=== PATIENT | female | born 1985 | race Asian ===

== ENCOUNTER 2020-11-25 07:38 | Inpatient (IN) ==
[2020-11-25] MEDS ORDERED: OXYTOCIN 30 UNITS/500 ML BAG IV PRN ×2 (08:03→08:04)
[2020-11-25 08:21] LABS: Hematocrit (blood only) 39.5 % (37-47); Hemoglobin 13.3 g/dL (12.0-16.0); Mean Corpuscular Hemoglobin 32.2 pg (25-34); Mean Corpuscular Hgb Conc 33.7 g/dL (32-36); Mean Corpuscular Volume 95.6 fL (80-100); Mean Platelet Volume 10.6 fL (7.4-10.4); Platelet Count 162 K/uL (130-400); RDW Coefficient of Variation 14.5 % (11.5-14.5); RDW Standard Deviation 49.9 fL (36.4-46.3); Red Blood Count 4.13 M/uL (4.2-5.4); White Blood Count 9.13 K/uL (4.8-10.8)
--- NOTE | 2020-11-25 08:21 | History & Physical Report ---
Date of Service November 25, 2020 Assessment & Plan (1) Encounter for induction of labor: 35 y/o w/ hx of IVF and GDM who presents for induction of labor at 40w2d and had mariscal bulb placed 11/24/20. AB pos. Rubella immune. GBS neg. Stable. - removed mariscal bulb 0849am - FHT and toco monitoring. Category 1 tracing. - will likely AROM later - LR 125mL/hr - induction w/ Pitocin - will likely use epidural - routine care (2) Gestational diabetes: - not on medications - BSG q2h (3) Hypothyroid in , antepartum: - subclinical hypothyroidism - continue home levothyroxine 75 mcg daily (4) resulting from in vitro fertilization, antepartum: - IVF ICSI Sabino Clark, transfer 03/07/20 - hx 1 prior IVF spontaneous - lupux anticoag pos 05/21/19, but neg on 09/27/19. Per hematology, does not meet criteria for antiphospholipid syndrome - had been on sq Lovenox 40 daily until 18 wks. - no hx blood clot and family hx neg - daily baby ASA this (5) Encounter for screening laboratory testing for COVID-19 virus: - 11/25/20 negative Admission and Anticipated Discharge Date Admission Date: November 25, 2020 History of Present Illness Primary Care Provider: Mila Mendel Roy is a 35 y/o female at 40w2d (IVF, manual) who is here for induction. Her was complicated by IVF, hypothyroidism, and Lovenox use (stopped at 18wks). Mariscal bulb placed yesterday. + contractions; + movement; - fluid loss; + bloody show Had regular appointments with OB. Labs: (04/23/20) Blood type: AB positive Antibody screen: neg H.3 (today) Hct: 39.5 (today) WBC: 9.13 (today) Plt: 162 (today) Rubella: immune VDRL/RPR: nonreactive Gonorrhea: not detected Chlamydia: not detected HIV: neg HbSAg: neg GBS: neg (11/06/20) Glucose 1 hour 50 gm load 173mg/dl (H) 06/09/20 Other screens: CF/SMA done w/ Sabino Clark TSH: 1.26 uIu/ml 08/30/20 Maternal serum alpha fetoprotein 43.5ng/nL 06/09/20 Allergies Allergy/AdvReac Type Severity Reaction Status Date / Time No Known Drug Allergies Allergy Unknown Verified 11/25/20 08:08 Home Medications Medication Instructions Recorded Confirmed Type aspirin 81 mg chewable tablet 81 mg PO DAILY 04/18/20 11/25/20 History prenat.vits,néstor,dst-[id number] 1 tab PO DAILY 04/18/20 11/25/20 History acetone (urine) test #50 ea 09/12/20 11/24/20 Rx blood-glucose meter #1 ea 09/12/20 11/24/20 Rx lancets #102 ea 09/12/20 11/24/20 Rx levothyroxine 75 mcg capsule 75 mcg PO .COMPLEX #30 cap 10/01/20 11/25/20 Rx blood sugar diagnostic #100 ea 11/11/20 11/24/20 Rx Patient History Medical History Gestational diabetes Hypothyroid in , antepartum Varicella vaccination Surgical History S/P dilatation and curettage S/P wisdom tooth extraction Family History Mother Hypertension History of thyroidectomy Social History Smoking Status: Never smoker Hx Alcohol Use: No Hx Substance Use: No Preferred Language: Albanian Communication Ability: Effective Beliefs That Will Affect Care: None marital status: marital status details: Bharat Jhaveri (35) [phone] Current Living Situation: Spouse Current Living Situation Comment: lives with spouse, no pets current occupational status: employed 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 Denies breast pain. Denies dysuria. Denies headache or changes in vision. Denies nausea/vomiting. Denies numbness, tingling, weakness. Physical Exam Physical Exam: General: Alert, oriented. No acute distress. Cardiac: Regular rate and rhythm, no murmurs/rubs/gallops. Respiratory: Clear to auscultation bilaterally, no wheezes/rales/rhonchi. No increased work of breathing. Symmetrical chest rise. No respiratory distress. Abdomen: Gravid Pelvic: Dilation 3-4 cm; Effacement 80%; Station -2. Soft posterior. EFW 7-8. Exam per Dr. De Los Santos, import/export specialist present. 0852am. Lower Extremities: No lower extremity edema or swelling. No deep calf pain. Myranda's negative bilaterally Results & Data ([facility]) Vital Signs (Past 12 Hours) Vital Signs Pulse BP 11/25/20 07:53 73 132/79 Code Status & VTE Plan Code Status full code VTE Prophylaxis Plan VTE Prophylaxis will be ordered: Yes Monitoring External Monitor External FHT and external uterine monitors used; Category I tracing; moderate FHT variability. Baseline 130 bpm w/ mod variability. No variable or late decels. Tocodynamometer Contractions q8-10 minutes. Supervising Physician Co-Signing Physician Notes Resident Physician Supervision Note: I interviewed and examined the patient. Discussed with Dr. Mariscal and agree with findings and plan as documented in the note. Any exceptions or clarifications are listed here: [None] Documented By: Jessica Caromna MD, FACOG Resident Activity Tracking Resident Involvement: Resident Care Provided Care Provided: OB Delivery
[2020-11-25] MEDS: LACTATED RINGER'S 1,000 ML IV PRN ×3 (09:29→19:49)
[2020-11-25] MEDS ORDERED: SODIUM CHLORIDE 0.9% INJ 10 ML VIAL ONE (12:55)
[2020-11-25] MEDS ORDERED: BUPIVACAINE 0.25% 30 ML VIAL ONE (12:55)
[2020-11-25] MEDS ORDERED: ePHEDrine sulfate 50 MG/ML AMP ONE (12:55)
[2020-11-25] MEDS ORDERED: fentaNYL 2MCG/ML ROPIVACAINE 1.25MG/ML 100 ML BAG EPI ONE (12:56)
[2020-11-25] MEDS ORDERED: fentaNYL citrate 100 MCG/2 ML VIAL ONE (12:56)
[2020-11-25] MEDS ORDERED: NALOXONE HCL 1 MG in SODIUM CHLORIDE 0.9% 1000ML 1,000 ML IV PRN (14:07)
[2020-11-25] MEDS ORDERED: NALOXONE HCL 0.4 MG/1 ML VIAL/CARP IV PRN (14:07)
[2020-11-25] MEDS ORDERED: ONDANSETRON INJ 2 MG/ML 2 ML VIAL IV PRN (14:07)
[2020-11-25] MEDS ORDERED: diphenhydrAMINE 50 MG/ML VIAL IV PRN (14:07)
[2020-11-25] MEDS ORDERED: ePHEDrine sulfate 50 MG/ML AMP IV PRN (14:07)
--- NOTE | 2020-11-25 14:12 | Anesthesiology Consultation ---
Date of Service November 25, 2020 Assessment & Plan (1) Encounter for pre-operative examination: Chart Review Chart Review: Acceptable Risk for Labor Epidural Consults Requested none ASA ASA2 Proposed Anesthesia Anesthesia Type: Labor Epidural Risk / Benefits Reviewed With: PT / POA / Parent / Guardian, Accepts Plan and Informed Consent Obtained History Height/Weight Height: 5 ft 5 in Weight: 59.874 kg Allergies Allergy/AdvReac Type Severity Reaction Status Date / Time No Known Drug Allergies Allergy Unknown Verified 11/25/20 08:08 Medications Home Medications Medication Instructions Recorded Confirmed Last Taken aspirin 81 mg chewable tablet 81 mg PO DAILY 04/18/20 11/25/20 11/24/20 prenat.vits,néstor,bht-[id number]-[id number] 1 tab PO DAILY 04/18/20 11/25/20 11/24/20 acetone (urine) test #50 ea 09/12/20 11/24/20 Unknown blood-glucose meter #1 ea 09/12/20 11/24/20 Unknown lancets #102 ea 09/12/20 11/24/20 Unknown levothyroxine 75 mcg capsule 75 mcg PO .COMPLEX #30 cap 10/01/20 11/25/20 11/25/20 blood sugar diagnostic #100 ea 11/11/20 11/24/20 Unknown Active Medications Generic Name Dose Route Start Last Admin Trade Name Freq PRN Reason Stop Dose Admin Oxytocin 30 units in 500 mls @ 8 mls/hr 11/25/20 08:04 11/25/20 11:57 Pitocin IV 11/27/20 08:03 0.48 units/hr .Q24H PRN 8 mls/hr Labor Induction/Augmentation Titration Protocol 0.48 UNITS/HR Lactated Ringer's 1,000 mls @ 125 mls/hr 11/25/20 08:03 11/25/20 13:55 Lr IV 11/27/20 08:02 999 mls/hr .Q8H PRN Administration L&D Protocol Protocol Past Medical History Medical History Gestational diabetes Hypothyroid in , antepartum Varicella vaccination Exercise / Class Metabolic Activity II 4-5 Yardwork/Stairs/Walk up hill Past Family History Family History Mother Hypertension History of thyroidectomy Past Surgical History Surgical History S/P dilatation and curettage S/P wisdom tooth extraction Past Anesthesia History No Hx of Anesthesia Complications and No Family Hx of Anesthesia Complications History of PONV No Hx of PONV and No Hx of Motion Sickness Social History Smoking Status: Never smoker Hx Alcohol Use: No Hx Substance Use: No substance use type: does not use Physical Exam Vital Signs Last Vital Signs Temp 98.2 F 11/25/20 13:30 Pulse 63 11/25/20 14:07 Resp 20 11/25/20 14:00 BP 131/80 11/25/20 13:55 Pulse Ox 99 11/25/20 14:07 ENMT Mouth: no dentition abnormality Thyromental Distance: > or= 3.5 Finger Breadths Mallampati Class: II Neck normal visual inspection Respiratory normal respiratory effort Auscultation: lungs clear to auscultation bilaterally Cardiovascular Rate/Rhythm: regular rate and regular rhythm Testing Laboratory Results 11/25/20 08:08 11/25/20 11/25/20 12:48 09:28 POC Glucose 92 115 H
[2020-11-25] MEDS: fentaNYL 2MCG/ML ROPIVACAINE 1.25MG/ML 100 ML BAG EPI PRN ×2 (14:18→21:44)
[2020-11-25] MEDS ORDERED: ERYTHROMYCIN OP OINT 1 GM PKT ONE (23:00)
[2020-11-26] MEDS ORDERED: DIPHTHERIA/TETANUS/PERTUSSIS 0.5 ML SYR/VIAL IM ONE (00:13)
[2020-11-26] MEDS ORDERED: ACETAMINOPHEN 325 MG TAB PO PRN (00:13)
[2020-11-26] MEDS ORDERED: HYDROCORTISONE ACETATE 25 MG SUPP PR PRN (00:13)
[2020-11-26] MEDS ORDERED: BENZOCAINE 20% AER SPR 82.5 GM CAN EXT PRN (00:13)
[2020-11-26] MEDS ORDERED: oxyCODONE/ACETAMINOPHEN 5mg/325mg TAB PO PRN (00:13)
[2020-11-26] MEDS ORDERED: bisacodyL 10 MG SUPP PR PRN (00:13)
[2020-11-26] MEDS ORDERED: OXYTOCIN 30 UNITS/500 ML BAG IV PRN (00:13)
[2020-11-26] MEDS ORDERED: SUPERCREAM 0.870% 15 GM JAR EXT PRN (00:13)
--- NOTE | 2020-11-26 00:19 | Delivery Summary ---
Vaginal Delivery Summary Date of Service November 26, Patient presented for induction of labor because of postterm . She received a cervical balloon the night prior to induction. Pitocin augmentation of her labor was begun and membranes were ruptured when she was approximately 4 to 5 cm dilated. She received effective epidural analgesia. She progressed to complete and pushing, which she did effectively over intact perineum. There was some bleeding when the head was at +3 station which appeared to be coming from a vaginal tear posteriorly. The bleeding was controlled with direct pressure. The then delivered in the vertex presentation the rest of the delivered easily and was placed on the mother's abdomen for further attention and drying. There was poor respiratory effort initially therefore the cord was clamped and cut. The was placed on the baby bed for further stimulation. The placenta was expressed intact with a three-vessel cord. A partial third-degree laceration was repaired with 2-0 chromic and 3-0 chromic in the usual fashion. The bleeding was controlled with dilute Pitocin. Estimated blood loss was 400 cc. Mother and infant were doing well after delivery. Vaginal Delivery Summary and 3rd Degree LAC (partial ) [facility] [place] Charge Vaginal Delivery Codes: 40313 global code for the antepartum, delivery, and post- Delivery Type Details: and 3rd Degree LAC (partial )
[2020-11-26] MEDS: IBUPROFEN 600 MG TAB PO PRN ×3 (02:37→17:30)
--- NOTE | 2020-11-26 05:59 | Obstetrical Progress Note ---
Date of Service <Chidi Mariscal MD - Last Filed: 11/26/20 06:56> November 26, 2020 Assessment & Plan <Chidi Mariscal MD - Last Filed: 11/26/20 06:56> (1) state: (2) Hypothyroidism affecting : - continue home levothyroxine 75 mg 6 days/wk (3) Gestational diabetes: - no medications or glucose checks indicated while in unit - check blood glucose at 6 wk check Subjective <Chidi Mariscal MD - Last Filed: 11/26/20 06:56> Passing Gas:: Yes Diet Tolerance:: regular diet Lochia:: Moderate Feeding Type:: breast feeding (not sure if enough milk.) Current Pain Level(1-10): 0 Patient delivered just prior to midnight and has not yet ambulated or voided. She would like assistance. Review of Systems Denies fever, chills, sweats Denies shortness of breath, chest pain, palpitations. Denies breast pain. Denies headache or changes in vision. Denies nausea/vomiting Denies numbness, tingling, weakness. Physical Exam <Chdii Mariscal MD - Last Filed: 11/26/20 06:56> General: Alert, oriented. No acute distress. Cardiac: Regular rate and rhythm, no murmurs/rubs/gallops. Respiratory: Clear to auscultation bilaterally, no wheezes/rales/rhonchi. No respiratory distress. Abdomen: , soft, nontender. Uterus: Uterine fundus firm, palpable at level of umbilicus. Lower Extremities: No lower extremity edema or swelling. No deep calf pain. Myranda's negative bilaterally. Results & Data ([facility]) <Chidi Mariscal MD - Last Filed: 11/26/20 06:56> Vital Signs (Past 12 Hours) Vital Signs Temp Pulse Pulse Resp BP BP Pulse Ox 11/26/20 03:35 36.6 C 84 16 110/72 97 11/26/20 03:33 108 H 106/59 L 11/26/20 02:36 109 H 112/57 L 11/26/20 02:35 37.2 C 109 H 20 112/57 L 11/26/20 02:21 100 H 96/55 L 11/26/20 02:16 98 H 95/53 L 11/26/20 02:06 109 H 105/57 L 11/26/20 02:05 109 H 18 105/57 L 11/26/20 01:51 112 H 102/58 L 11/26/20 01:36 105 H 102/57 L 11/26/20 01:35 112 H 16 102/58 L 11/26/20 01:21 104 H 104/63 11/26/20 01:06 107 H 114/74 11/26/20 01:05 107 H 18 114/74 11/26/20 00:51 117 H 128/72 11/26/20 00:50 117 H 18 116/68 11/26/20 00:36 117 H 116/68 11/26/20 00:35 121 H 18 123/68 11/26/20 00:21 121 H 123/68 11/26/20 00:20 121 H 18 123/68 11/26/20 00:06 94 H 115/67 11/26/20 00:05 121 H 20 123/68 11/26/20 00:02 99 H 100 11/25/20 23:57 105 H 98 11/25/20 23:52 103 H 100 11/25/20 23:51 120 H 127/69 11/25/20 23:47 97 H 100 11/25/20 23:44 108 H 90 11/25/20 23:42 117 H 89 L 11/25/20 23:39 126 H 87 L 11/25/20 23:38 125 H 114/72 11/25/20 23:37 123 H 100 11/25/20 23:32 135 H 100 11/25/20 23:30 112 H 84 L 11/25/20 23:27 127 H 100 11/25/20 23:23 111 H 85 L 11/25/20 23:22 115 H 100 11/25/20 23:21 116 H 119/74 11/25/20 23:18 111 H 89 L 11/25/20 23:17 120 H 100 11/25/20 23:13 122 H 93 11/25/20 23:12 124 H 95 11/25/20 23:07 101 H 127/77 100 11/25/20 23:02 101 H 100 11/25/20 23:01 92 H 90 11/25/20 22:57 95 H 100 11/25/20 22:55 104 H 92 11/25/20 22:52 92 H 98 11/25/20 22:47 88 98 11/25/20 22:45 20 11/25/20 22:42 105 H 98 11/25/20 22:37 92 H 99 11/25/20 22:32 81 100 11/25/20 22:30 37.2 C 20 11/25/20 22:27 83 100 11/25/20 22:25 76 93 11/25/20 22:22 82 128/86 99 11/25/20 22:17 69 100 11/25/20 22:12 75 97 11/25/20 22:07 75 98 11/25/20 22:06 74 117/77 11/25/20 22:02 73 98 11/25/20 22:00 20 11/25/20 21:57 86 98 11/25/20 21:52 71 114/73 99 11/25/20 21:47 73 97 11/25/20 21:44 79 93 11/25/20 21:42 70 98 11/25/20 21:37 74 111/65 97 11/25/20 21:32 68 97 11/25/20 21:30 20 11/25/20 21:27 69 11/25/20 21:22 72 106/67 97 11/25/20 21:17 65 97 11/25/20 21:12 68 96 11/25/20 21:07 68 106/63 96 11/25/20 21:02 68 97 11/25/20 21:00 20 11/25/20 20:57 68 99 11/25/20 20:52 69 117/78 98 11/25/20 20:47 67 98 11/25/20 20:42 72 99 11/25/20 20:37 69 98 11/25/20 20:36 66 126/78 11/25/20 20:32 73 99 11/25/20 20:30 37.2 C 20 11/25/20 20:27 69 99 11/25/20 20:22 67 98 11/25/20 20:21 68 119/75 11/25/20 20:17 67 97 11/25/20 20:12 66 96 11/25/20 20:08 66 118/77 11/25/20 20:07 65 97 11/25/20 20:02 62 98 11/25/20 20:00 20 11/25/20 19:57 69 99 11/25/20 19:52 68 99 11/25/20 19:51 74 116/78 11/25/20 19:47 80 98 11/25/20 19:42 69 99 11/25/20 19:37 73 99 11/25/20 19:36 73 122/83 11/25/20 19:32 78 98 11/25/20 19:30 20 11/25/20 19:27 70 98 11/25/20 19:22 65 96 11/25/20 19:21 67 117/79 11/25/20 19:17 69 97 11/25/20 19:12 69 98 11/25/20 19:07 66 98 11/25/20 19:06 68 121/71 11/25/20 19:02 67 98 11/25/20 19:00 16 11/25/20 18:57 69 98 11/25/20 18:52 64 121/80 97 11/25/20 18:47 66 96 11/25/20 18:42 62 96 11/25/20 18:37 69 118/78 95 11/25/20 18:32 66 97 11/25/20 18:30 37.0 C 22 11/25/20 18:27 68 97 11/25/20 18:24 67 123/80 11/25/20 18:22 75 97 11/25/20 18:21 71 120/76 11/25/20 18:17 68 96 11/25/20 18:12 65 95 11/25/20 18:07 66 119/74 96 11/25/20 18:02 65 96 11/25/20 18:00 18 Medications Administered <Jessica Carmona MD, FACOG - Last Filed: 11/26/20 07:00> Co-Signing Physician Notes Resident Physician Supervision Note: I interviewed and examined the patient. Discussed with Dr. Mariscal and agree with findings and plan as documented in the note. Any exceptions or clarifications are listed here: [None] Documented By: Jessica Carmona MD, FACOG Resident Activity Tracking <Chidi Mariscal MD - Last Filed: 11/26/20 06:56> Resident Involvement: Resident Care Provided Care Provided: OB Delivery
[2020-11-26] MEDS: LEVOTHYROXINE SODIUM 75 MCG TABLET PO SCH (06:01)
--- NOTE | 2020-11-26 07:23 | Anesthesia Procedure Note ---
Date of Service November 26, 2020 Anesthesia Post Epidural Note Vital Signs Vital Signs: Temp Pulse Resp BP Pulse Ox 36.6 C 84 16 110/72 97 11/26/20 03:35 11/26/20 03:35 11/26/20 03:35 11/26/20 03:35 11/26/20 03:35 Pain Intensity Lower Abdomen: Pain Intensity: 1 Notes Mental Status: alert / awake / arousable and participated in evaluation Patient Amnestic to Procedure: Yes Nausea / Vomiting: adequately controlled Pain: adequately controlled Airway Patency, RR, SpO2: stable & adequate BP & HR: stable & adequate Hydration State: stable & adequate Anesthetic Complications: no major complications apparent and Pt Satisfied with anesthetic care
[2020-11-26] MEDS: DOCUSATE SODIUM 100 MG CAP PO SCH ×2 (07:59→21:10)
[2020-11-26] MEDS: PRENATAL VITAMIN 1 TAB PO SCH (07:59)
--- NOTE | 2020-11-27 05:43 | Obstetrical Progress Note ---
Date of Service <Chidi Mariscal MD - Last Filed: 11/27/20 07:29> November 27, 2020 Assessment & Plan <Chidi Mariscal MD - Last Filed: 11/27/20 07:29> (1) state: (2) Hypothyroidism affecting : - continue home levothyroxine 75 mg 6 days/wk (3) Gestational diabetes: - no medications or glucose checks indicated while in unit - check blood glucose at 6 wk check Subjective <Chidi Mariscal MD - Last Filed: 11/27/20 07:29> Ambulation: ambulating normally Voiding: no voiding problems Passing Gas:: Yes Diet Tolerance:: regular diet Lochia:: Small Feeding Type:: breast feeding Current Pain Level(1-10): 0 no pain. talked to consultatant. no issues. lochia improving. feels ready for home Review of Systems Denies fever, chills, sweats Denies shortness of breath, chest pain, palpitations. Denies breast pain. Denies dysuria. Denies headache or changes in vision. Denies nausea/vomiting. Denies numbness, tingling, weakness. Denies mood complaints Physical Exam <Chiid Mariscal MD - Last Filed: 11/27/20 07:29> General: Alert, oriented. No acute distress. Cardiac: Regular rate and rhythm, no murmurs/rubs/gallops. Respiratory: Clear to auscultation bilaterally, no wheezes/rales/rhonchi. No respiratory distress. Abdomen: , soft, nontender. Uterus: Uterine fundus firm, palpable at level of umbilicus, to the right. Lower Extremities: No lower extremity edema or swelling. No deep calf pain. Myranda's negative bilaterally. Results & Data ([facility]) <Chidi Mariscal MD - Last Filed: 11/27/20 07:29> Vital Signs (Past 12 Hours) Vital Signs Temp Pulse Resp BP Pulse Ox 11/26/20 23:50 36.4 C L 81 16 99/62 L 96 11/26/20 19:38 36.4 C L 73 20 99/57 L Medications Administered <Kenia Plascencia MD - Last Filed: 11/27/20 07:34> Co-Signing Physician Notes Resident Physician Supervision Note: I interviewed and examined the patient. Discussed with Dr. Mariscal and agree with findings and plan as documented in the note. Any exceptions or clarifications are listed here: None Documented By: Kenia Plascencia MD, FACOG
[2020-11-27 06:24] LABS: Hematocrit (blood only) 25.3 % (37-47); Hemoglobin 8.5 g/dL (12.0-16.0); Mean Corpuscular Hemoglobin 32.1 pg (25-34); Mean Corpuscular Hgb Conc 33.6 g/dL (32-36); Mean Corpuscular Volume 95.5 fL (80-100); Mean Platelet Volume 9.8 fL (7.4-10.4); Platelet Count 131 K/uL (130-400); RDW Coefficient of Variation 14.8 % (11.5-14.5); RDW Standard Deviation 51.2 fL (36.4-46.3); Red Blood Count 2.65 M/uL (4.2-5.4); White Blood Count 11.05 K/uL (4.8-10.8)
[2020-11-27] MEDS: LEVOTHYROXINE SODIUM 75 MCG TABLET PO SCH (06:31)
[2020-11-27] MEDS: DOCUSATE SODIUM 100 MG CAP PO SCH (08:55)
[2020-11-27] MEDS: IBUPROFEN 600 MG TAB PO PRN (08:55)
[2020-11-27] MEDS: PRENATAL VITAMIN 1 TAB PO SCH (08:55)
[2020-11-27] MEDS ORDERED: bisacodyL 5 MG TABEC PO SCH (20:00)
== END 2020-11-27 12:55 | disposition home or self-care (01) | DRG 768 ==
LOC: 4S1 07:38 → 4S2 11-26 03:45

== ENCOUNTER 2022-09-16 08:26 | Inpatient (IN) ==
[2022-09-16] MEDS ORDERED: OXYTOCIN 30 UNITS/500 ML BAG IV PRN ×2 (09:01→17:57)
[2022-09-16] MEDS ORDERED: LIDOCAINE 1% LOCAL 20 ML VIAL INFIL PRN (09:01)
--- NOTE | 2022-09-16 09:09 | History & Physical Report ---
Date of Service September 16, 2022 Assessment & Plan (1) resulting from in vitro fertilization, antepartum: (2) Gestational diabetes mellitus (GDM) affecting , antepartum: (3) Encounter for anatomic survey: (4) 40 weeks gestation of : Plan admit. expectant management for now. Consider arom/pit. fetus category one. anticipate . History of Present Illness Chief Complaint: contractions Primary Care Provider: Mila Oglesby Patient is a 36yowaf with iup at 40 1/7 weeks who presents to labor and delivery with contractions. Irregular, notes 7-8min. Noted decreased FM, but notes since here noted movement. Notes no lof /vb. and Delivery Plans IVF/ICSI * Echo @ [facility] [place] 1 month echo to follow up on mild tricuspid regurgitation *Growth US Q4wks @28wks *Weekly NSTs @36wks *Weekly RICHARD's @36wks(ICSI only) AMA *Weekly NST's @ 36wks. Hypothyroid *Check TFTs Q4wks GDM in prior *Begin monthly AC Us's @24wks Pt requests NT scan @ [facility] *NT scheduled 03/05/22 Flu vaccine given 06/22/22- OB Labs: Blood Type AB Positive 03/11/22 Antibody Screen NEGATIVE 03/11/22 Hemoglobin 13.4 g/dl (12.0-16.0) 06/22/22 Hematocrit 40.2 % (34.1-44.9) 06/22/22 Mean Corpuscular Volume 90.8 fL (80-100) 03/11/22 Platelet Count 261 K/uL (130-400) 03/11/22 Rubella IgG Antibody Immune (Immune) 03/11/22 Rapid Plasma Reagin Nonreactive (Nonreactive) 03/11/22 Hepatitis B Surface Antigen Neg (Neg) 04/23/20 Hepatitis B Surface Antigen. NON-REACTIVE (NON-REACTIVE) 03/11/22 Hepatitis C Antibody Neg (Neg) 10/25/19 Hepatitis C Antibody (EIA) NON-REACTIVE (NON-REACTIVE) 03/11/22 HIV (1&2) Ab and P24 Ag, 4th Gener Neg (Neg) 04/23/20 HIV (1&2) Ag and Ab Confirmation NON-REACTIVE (NON-REACTIVE) 03/11/22 Glucose 1 Hour 50 gm Load 173 mg/dl (70-130) H 06/09/20 Maternal Serum Alpha Fetoprotein 43.5 ng/mL 06/09/20 OB Optional Labs: Chlamydia trachomatis RNA NOT DETECTED (NOT DETECTED) 02/19/22 Neisseria gonorrhoeae RNA NOT DETECTED (NOT DETECTED) 02/19/22 Thyroid Stimulating Hormone (TSH) 0.881 uIu/ml (0.300-4.500) 06/22/22 Alpha Fetoprotein Triple Screen SEE NOTE 06/09/20 low risk panorama gbs neg afp neg Allergies Allergy/AdvReac Type Severity Reaction Status Date / Time No Known Drug Allergies Allergy Unknown Verified 09/14/22 11:56 Home Medications Medication Instructions Recorded Confirmed Type prenat.vits,néstor,ptz-rfsr-vkjww 1 tab PO DAILY 04/18/20 09/14/22 History levothyroxine 50 mcg tablet 50 mcg PO DAILY #90 tabs 10/23/21 09/14/22 Rx aspirin 81 mg tablet,delayed 81 mg PO DAILY 02/12/22 09/14/22 History release (Adult Low Dose Aspirin) acetone (urine) test (Ketone Urine #50 ea 03/04/22 09/14/22 Rx Test strips) blood sugar diagnostic (OneTouch #150 ea 03/04/22 09/14/22 Rx Verio test strips) blood-glucose meter (OneTouch #1 ea 03/04/22 09/14/22 Rx Verio Reflect Meter) lancets 33 gauge (OneTouch Delica #150 ea 03/04/22 09/14/22 Rx Lancets) Patient History Medical History Granulation tissue at obstetrical laceration site Varicella vaccination Surgical History S/P dilatation and curettage S/P wisdom tooth extraction Family History Mother Hypertension History of thyroidectomy Social History Smoking Status: Never smoker Hx Alcohol Use: No Hx Substance Use: No Preferred Language: Indonesian Communication Ability: Effective Plating Engineer Required: No Beliefs That Will Affect Care: None marital status: marital status details: Bharat Jhaveri (37) [phone] Current Living Situation: Family Current Living Situation Comment: lives with spouse, and son, current occupational status: employed 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 Date GA wks Lbr Lgth wt Sex Type del Anes Place Del Prov ? Comment 05/03/19 Aborted-Spontaneous D&E 11/25/20 40 7lb 12.9oz M Ep idural [facility] Dr. De Los Santos No GDM Physical Exam Constitutional: WD/WN, vitals as above Gastrointestinal (Abdomen): soft, nt, nd, gravid Psychiatric: A+Ox3, euthymic affect Genitourinary: cx--5/90/-2 toco--q5-8min efm--130s with mod variabiltiy, accels to 160s, no decels Results & Data ([facility]) Vital Signs (Past 12 Hours) Vital Signs Temp Pulse Resp BP 09/16/22 08:37 36.8 C 20 09/16/22 08:34 65 111/72 Coding Level of Care Code None Diagnoses resulting from in vitro fertilization, antepartum O09.819 Gestational diabetes mellitus (GDM) affecting , antepartum O24.419 Encounter for anatomic survey Z36.89 40 weeks gestation of Z3A.40
[2022-09-16] MEDS: LACTATED RINGER'S 1,000 ML IV PRN ×2 (09:24→11:10)
[2022-09-16 10:04] LABS: Hematocrit (blood only) 39.1 % (34.1-44.9); Hemoglobin 13.3 g/dl (12.0-16.0); Mean Corpuscular Hemoglobin 33.3 pg (25.0-34.0); Platelet Count 138 K/uL (130-400); RDW Coefficient of Variation 13.5 % (11.5-14.5); RDW Standard Deviation 48.4 fL (36.4-46.3); Red Blood Count 3.99 M/uL (3.93-5.22); White Blood Count 6.46 K/ul (4.8-10.8)
[2022-09-16] MEDS ORDERED: fentaNYL citrate 100 MCG/2 ML VIAL ONE (10:32)
[2022-09-16] MEDS ORDERED: LIDOCAINE 2%/EPINEPHRINE 1:200,000 20 ML SDV ONE (10:32)
[2022-09-16] MEDS ORDERED: SODIUM CHLORIDE 0.9% INJ 10 ML VIAL ONE (10:32)
[2022-09-16] MEDS ORDERED: ePHEDrine sulfate 50 MG/ML AMP ONE (10:32)
[2022-09-16] MEDS ORDERED: BUPIVACAINE 0.25% 30 ML VIAL ONE (10:32)
[2022-09-16] MEDS ORDERED: fentaNYL 2MCG/ML ROPIVACAINE 1.25MG/ML 100 ML BAG EPI ONE (10:33)
[2022-09-16] MEDS ORDERED: NALBUPHINE HCL INJ 10 MG/ML AMP IV PRN (10:46)
[2022-09-16] MEDS ORDERED: ePHEDrine sulfate 50 MG/ML AMP IV PRN (10:46)
[2022-09-16] MEDS ORDERED: ONDANSETRON INJ 2 MG/ML 2 ML VIAL IV PRN (10:46)
[2022-09-16] MEDS ORDERED: NALOXONE HCL 0.4 MG/1 ML VIAL/CARP IV PRN (10:46)
[2022-09-16] MEDS ORDERED: diphenhydrAMINE 50 MG/ML VIAL IV PRN (10:46)
[2022-09-16] MEDS ORDERED: fentaNYL 2MCG/ML ROPIVACAINE 1.25MG/ML 100 ML BAG EPI PRN (10:46)
[2022-09-16] MEDS ORDERED: NALOXONE HCL 1 MG in SODIUM CHLORIDE 0.9% 1000ML 1,000 ML IV PRN (10:46)
--- NOTE | 2022-09-16 10:47 | Anesthesiology Consultation ---
Date of Service September 16, 2022 Assessment & Plan (1) Encounter for pre-operative examination: Chart Review Chart Review: Patient NOT seen in Pre Admission Testing and Acceptable Risk for Labor Epidural Consults Requested none History Height/Weight Height: 5 ft 5 in Weight: 66.224 kg Allergies Allergy/AdvReac Type Severity Reaction Status Date / Time No Known Drug Allergies Allergy Unknown Verified 09/16/22 09:34 Medications Home Medications Medication Instructions Recorded Confirmed Last Taken prenat.vits,néstor,kwp-fzjl-bywmd 1 tab PO DAILY 04/18/20 09/16/22 11/24/20 levothyroxine 50 mcg tablet 50 mcg PO DAILY #90 tabs 10/23/21 09/16/22 Unknown aspirin 81 mg tablet,delayed 81 mg PO DAILY 02/12/22 09/16/22 Unknown release (Adult Low Dose Aspirin) acetone (urine) test (Ketone Urine #50 ea 03/04/22 09/14/22 Unknown Test strips) blood sugar diagnostic (OneTouch #150 ea 03/04/22 09/14/22 Unknown Verio test strips) blood-glucose meter (OneTouch #1 ea 03/04/22 09/14/22 Unknown Verio Reflect Meter) lancets 33 gauge (OneTouch Delica #150 ea 03/04/22 09/14/22 Unknown Lancets) Active Medications Generic Name Dose Route Start Last Admin Trade Name Freq PRN Reason Stop Dose Admin Lactated Ringer's 1,000 mls @ 125 mls/hr 09/16/22 09:01 09/16/22 11:10 Lr IV 09/18/22 09:00 125 mls/hr .Q8H PRN Administration L&D Protocol Protocol Past Medical History Medical History Granulation tissue at obstetrical laceration site Varicella vaccination Exercise / Class Metabolic Activity II 4-5 Yardwork/Stairs/Walk up hill Past Family History Family History Mother Hypertension History of thyroidectomy Past Surgical History Surgical History S/P dilatation and curettage S/P wisdom tooth extraction Social History Smoking Status: Never smoker Hx Alcohol Use: No Hx Substance Use: No substance use type: does not use Physical Exam Vital Signs Last Vital Signs Temp 36.8 C 09/16/22 08:37 Pulse 65 09/16/22 11:08 Resp 20 09/16/22 08:37 BP 146/84 H 09/16/22 11:08 Pulse Ox 100 09/16/22 11:07 Testing Laboratory Results 09/16/22 09:19 09/16/22 09/16/22 10:18 09:14 POC Glucose 95 109 H
--- NOTE | 2022-09-16 12:15 | Labor Progress Brief Note ---
Date of Service September 16, 2022 Subjective comfortable with epidural Assessment & Plan (1) Normal labor: Plan continue current plans. BS have been wnl. fetus category one. anticipate . Admission and Anticipated Discharge Date Admission Date: September 16, 2022 Physical Exam Physical Exam: cx--6/100/-1 arom--clear toco--qq4-6min efm--130s with mod variabiltiy, accels to 160s, no decels Results & Data ([facility]) Vital Signs (Past 12 Hours) Vital Signs Temp Pulse Resp BP Pulse Ox 09/16/22 08:37 36.8 C 20 09/16/22 12:12 99 09/16/22 12:12 57 L 09/16/22 12:10 62 09/16/22 12:10 127/76 09/16/22 12:07 98 09/16/22 12:07 71 09/16/22 12:02 98 09/16/22 12:02 67 09/16/22 11:57 98 09/16/22 11:57 64 09/16/22 11:54 71 09/16/22 11:54 118/80 09/16/22 11:52 98 09/16/22 11:52 65 09/16/22 11:47 98 09/16/22 11:47 75 09/16/22 11:42 98 09/16/22 11:42 62 09/16/22 11:37 99 09/16/22 11:37 60 09/16/22 11:37 65 09/16/22 11:37 140/80 09/16/22 11:32 97 09/16/22 11:32 67 09/16/22 11:32 63 09/16/22 11:32 127/72 09/16/22 11:27 97 09/16/22 11:27 64 09/16/22 11:27 67 09/16/22 11:27 118/76 09/16/22 11:22 98 09/16/22 11:22 63 09/16/22 11:20 58 L 09/16/22 11:20 119/75 09/16/22 11:18 72 09/16/22 11:18 134/86 09/16/22 11:17 18 09/16/22 11:17 37.0 C 18 09/16/22 11:17 98 09/16/22 11:17 70 09/16/22 11:16 18 09/16/22 11:16 18 09/16/22 11:16 62 09/16/22 11:16 123/76 09/16/22 11:14 74 09/16/22 11:14 140/87 09/16/22 11:12 99 09/16/22 11:12 62 09/16/22 11:12 124/73 09/16/22 11:10 61 09/16/22 11:10 131/72 09/16/22 11:08 65 09/16/22 11:08 146/84 H 09/16/22 11:07 100 09/16/22 11:07 68 09/16/22 11:02 100 09/16/22 11:02 68 09/16/22 10:57 100 09/16/22 10:57 77 09/16/22 08:34 65 111/72 Coding Level of Care Code None Diagnoses Normal labor O80; Z37.9
[2022-09-16] MEDS ORDERED: METHYLERGONOVINE MALEATE 0.2 MG/ML AMP ONE (17:38)
--- NOTE | 2022-09-16 17:49 | Anesthesia Procedure Note ---
Date of Service September 16, 2022 Anesthesia Post Epidural Note Vital Signs Vital Signs: Temp Pulse Resp BP Pulse Ox 36.8 C 88 20 134/74 98 09/16/22 16:10 09/16/22 17:39 09/16/22 16:54 09/16/22 17:39 09/16/22 17:38 Notes Mental Status: alert / awake / arousable and participated in evaluation Patient Amnestic to Procedure: No Nausea / Vomiting: adequately controlled Pain: adequately controlled Airway Patency, RR, SpO2: stable & adequate BP & HR: stable & adequate Hydration State: stable & adequate Neuraxial Anesthesia: was administered and sensory block is resolving Anesthetic Complications: no major complications apparent and Pt Satisfied with anesthetic care Epidural: Removed without complications and With tip intact
--- NOTE | 2022-09-16 17:54 | Delivery Summary ---
Vaginal Delivery Summary Date of Service September 16, 2022 Vaginal Delivery Summary and 2nd Degree LAC Pre-operative Diagnosis: at 40 1/7 labor Post-operative Diagnosis: same Procedure: epidural arom second degree laceration repair EBL: 600 Anesthesia: epidural Procedure: Patient presented to labor and delivery in labor. She was admitted and underwent an epidural. Then arom for clear fluid. Patient spontaneously progressed to c/c/+2. The patient pushed for a few contractions to deliver a viable female in say position. The rest of the was then delivered without difficulty. The baby was vigorous and placed on the maternal abdomen. Cord was clamped and cut at one minute of life. Cord blood obtained. Placenta delivered spontaneous, intact with a three vessel cord. Cervix/sulci/rectum were intact. A second degree perineal laceration was repaired in the normal standard fashion. Hemostasis obtained with dilute pitocin and fundal massage. Apgars were pending. Mother and baby doing well at the end of the delivery. [facility] Vaginal Delivery Charge Delivery Type Details: and 2nd Degree LAC
[2022-09-16] MEDS ORDERED: bisacodyL 10 MG SUPP PR PRN (17:57)
[2022-09-16] MEDS ORDERED: IBUPROFEN 600 MG TAB PO PRN (17:57)
[2022-09-16] MEDS ORDERED: DIPHTHERIA/TETANUS/PERTUSSIS 0.5 ML SYR/VIAL IM ONE (17:57)
[2022-09-16] MEDS ORDERED: BENZOCAINE 20% AER SPR 82.5 GM CAN EXT PRN (17:57)
[2022-09-16] MEDS ORDERED: HYDROCORTISONE ACETATE 25 MG SUPP PR PRN (17:57)
[2022-09-16] MEDS ORDERED: ACETAMINOPHEN 325 MG TAB PO PRN (17:57)
[2022-09-16] MEDS ORDERED: oxyCODONE/ACETAMINOPHEN 5mg/325mg TAB PO PRN (17:57)
[2022-09-16] MEDS ORDERED: LACTATED RINGER'S 1,000 ML IV SCH (18:00)
[2022-09-16] MEDS: DOCUSATE SODIUM 100 MG CAP PO SCH (21:06)
--- NOTE | 2022-09-17 06:54 | Obstetrical Progress Note ---
Date of Service <Kevin Germain DO - Last Filed: 09/17/22 07:40> September 17, 2022 Assessment & Plan <Kevin Germain DO - Last Filed: 09/17/22 07:40> (1) Vaginal delivery: - Feels well today. Eating well, voiding well, ambulating well. - Pain well controlled with ibuprofen 600mg Q4H PRN - Routine care -- OOB, ambulation, diet progression as tolerated - After discharge will have 6 week follow-up with Dr. Damico. Day #:: 1 <Nneka Damico MD, FACOG - Last Filed: 09/17/22 07:52> (1) Vaginal delivery: Subjective <Kevin Germain DO - Last Filed: 09/17/22 07:40> Ambulation: ambulating normally Voiding: no voiding problems Passing Gas:: Yes Diet Tolerance:: regular diet Lochia:: Small Feeding Type:: breast feeding Current Pain Level(1-10): 2 Review of Systems Denies fever, chills, sweats Denies shortness of breath, difficulty breathing, chest pain, palpitations, chest pressure. Denies breast pain. Denies dysuria. Denies headache or changes in vision. Physical Exam <Kevin Germain DO - Last Filed: 09/17/22 07:40> General: Alert, oriented. No acute distress. Cardiac: Regular rate and rhythm, no murmurs/rubs/gallops. Respiratory: Clear to auscultation bilaterally a/p, no wheezes/rales/rhonchi. No increased work of breathing. Symmetrical chest rise. No respiratory distress. Abdomen: Soft, nontender, nondistended. Bowel sounds present. Uterus: Uterine fundus firm, palpable 2 cm below umbilicus. Lower Extremities: No lower extremity edema or swelling. No deep calf pain. Myranda's negative bilaterally. Results & Data ([facility]) <Kevin Germain DO - Last Filed: 09/17/22 07:40> Vital Signs (Past 12 Hours) Vital Signs Temp Pulse Pulse Resp BP BP Pulse Ox 09/17/22 03:32 36.7 C 62 16 124/75 98 09/16/22 23:23 36.7 C 61 16 117/76 98 09/16/22 20:50 37.0 C 66 18 120/77 09/16/22 19:55 80 09/16/22 19:55 132/73 09/16/22 19:41 89 09/16/22 19:41 135/85 09/16/22 19:19 73 09/16/22 19:19 120/79 09/16/22 19:09 75 09/16/22 19:09 117/73 09/16/22 18:55 75 09/16/22 18:55 145/67 H O2 Del Method 09/17/22 03:32 Room Air 09/16/22 23:23 Room Air 09/16/22 20:50 09/16/22 19:55 09/16/22 19:55 09/16/22 19:41 09/16/22 19:41 09/16/22 19:19 09/16/22 19:19 09/16/22 19:09 09/16/22 19:09 09/16/22 18:55 09/16/22 18:55 <Nneka Damico MD, FACOG - Last Filed: 09/17/22 07:52> Co-Signing Physician Notes Resident Physician Supervision Note: I interviewed and examined the patient. Discussed with Dr. Germain and agree with findings and plan as documented in the note. Any exceptions or clarifications are listed here: Doing well. Plan d/c. Instructions reviewed. Documented By: Nneka Damico MD, FACOG Resident Activity Tracking <Kevin Germain DO - Last Filed: 09/17/22 07:40> Resident Involvement: Resident Care Provided Care Provided: OB Delivery
[2022-09-17] MEDS: LEVOTHYROXINE SODIUM 50 MCG TABLET PO SCH (07:23)
[2022-09-17 08:02] LABS: Hematocrit (blood only) 30.9 % (34.1-44.9); Hemoglobin 10.5 g/dl (12.0-16.0); Mean Corpuscular Hemoglobin 32.7 pg (25.0-34.0); Mean Corpuscular Volume 96.3 fL (80.0-100.0); Mean Platelet Volume 11.2 fL (9.4-12.3); Platelet Count 131 K/uL (130-400); RDW Coefficient of Variation 13.3 % (11.5-14.5); Red Blood Count 3.21 M/uL (3.93-5.22); White Blood Count 7.75 K/ul (4.8-10.8)
[2022-09-17] MEDS: DOCUSATE SODIUM 100 MG CAP PO SCH ×2 (08:34→20:19)
[2022-09-17] MEDS: PRENATAL VITAMIN 1 TAB PO SCH (08:35)
[2022-09-17] MEDS ORDERED: PRENATAL VITAMIN 1 TAB PO SCH (09:00)
[2022-09-17] MEDS ORDERED: ASPIRIN 81 MG ECTAB PO SCH (09:00)
[2022-09-17] MEDS ORDERED: bisacodyL 5 MG TABEC PO SCH (20:00)
[2022-09-18 06:44] LABS: Hematocrit (blood only) 30.9 % (34.1-44.9); Hemoglobin 10.5 g/dl (12.0-16.0)
[2022-09-18] MEDS: LEVOTHYROXINE SODIUM 50 MCG TABLET PO SCH (07:12)
--- NOTE | 2022-09-18 07:13 | Obstetrical Progress Note ---
Date of Service <Kevin Germain DO - Last Filed: 09/18/22 07:13> September 18, 2022 Assessment & Plan <Kevin Germain DO - Last Filed: 09/18/22 07:13> (1) Vaginal delivery: - Feels well today. Eating well, voiding well, ambulating well. - Pain well controlled with ibuprofen 600mg Q4H PRN - Routine care -- OOB, ambulation, diet progression as tolerated - After discharge will have 6 week follow-up with Dr. Damico. - Will D/C today. Day #:: 2 <Jessica Carmona MD, FACOG - Last Filed: 09/18/22 10:12> (1) Vaginal delivery: Subjective <Kevin Germain DO - Last Filed: 09/18/22 07:13> Ambulation: ambulating normally Voiding: no voiding problems Passing Gas:: Yes Diet Tolerance:: regular diet Lochia:: Small Feeding Type:: breast feeding Current Pain Level(1-10): 1 Review of Systems Denies fever, chills, sweats Denies shortness of breath, difficulty breathing, chest pain, palpitations, chest pressure. Denies breast pain. Denies dysuria. Denies headache or changes in vision. Physical Exam <Kevin Germain DO - Last Filed: 09/18/22 07:13> General: Alert, oriented. No acute distress. Cardiac: Regular rate and rhythm, no murmurs/rubs/gallops. Respiratory: Clear to auscultation bilaterally a/p, no wheezes/rales/rhonchi. No increased work of breathing. Symmetrical chest rise. No respiratory distress. Abdomen: Soft, nontender, nondistended. Bowel sounds present. Uterus: Uterine fundus firm, palpable 2 cm below umbilicus. Lower Extremities: No lower extremity edema or swelling. No deep calf pain. Myranda's negative bilaterally. Results & Data ([facility]) <Kevin Germain DO - Last Filed: 09/18/22 07:13> Vital Signs (Past 12 Hours) Vital Signs Temp Pulse Resp BP Pulse Ox O2 Del Method 09/17/22 23:30 36.4 C L 82 18 113/78 98 Room Air 09/17/22 20:05 36.7 C 72 18 115/72 98 Room Air <Jessica Carmona MD, FACOG - Last Filed: 09/18/22 10:12> Co-Signing Physician Notes Resident Physician Supervision Note: I interviewed and examined the patient. Discussed with Dr. Germain and agree with findings and plan as documented in the note. Any exceptions or clarifications are listed here: [None] Documented By: Jessica Carmona MD, FACOG Resident Activity Tracking <Kevin Germain DO - Last Filed: 09/18/22 07:13> Resident Involvement: Resident Care Provided Care Provided: OB Delivery
[2022-09-18] MEDS: DOCUSATE SODIUM 100 MG CAP PO SCH (09:44)
[2022-09-18] MEDS: PRENATAL VITAMIN 1 TAB PO SCH (09:44)
== END 2022-09-18 15:00 | disposition home or self-care (01) | DRG 807 ==
LOC: OPB 08:26 → 4S1 08:27 → 4E2 20:24

== ENCOUNTER 2022-11-19 09:44 | Observation (INO) ==
[2022-11-19] MEDS ORDERED: SODIUM CHLORIDE 0.9% 1000ML 1,000 ML IV ONE (10:02)
--- NOTE | 2022-11-19 10:05 | Emergency Department Note ---
Impression & Plan Acute appendicitis, Abdominal pain ED Provider Note NAME: KAMARI MUELLER AGE: 36 SEX: F : 1985 ARRIVES VIA: Walk-In INFORMANT: Patient ED PROVIDER(S): Gilberto Madrid DO CHIEF COMPLAINT: abdominal pain HPI: Patient is a 36-year-old female who delivered in early September who p resents to the ER for right lower quadrant abdominal pain. She delivered vaginally. No previous abdominal surgeries. Denies any headache or change in vision. Pain started last night around 7 PM. About 6 out of 10. Improves with rest but significantly worse with movement as well as bending and movement of the right lower extremity. No dysuria, urgency, or frequency. Has not had a menstrual period since she delivered. PAST MEDICAL HISTORY:See Below PAST SURGICAL HISTORY:See Below FAMILY HISTORY:See Below SOCIAL HISTORY:See Below HOME MEDICATIONS:See Below ALLERGIES:See Below VITALS:See Below PHYSICAL EXAMINATION: GENERAL: Sitting up in bed, alert, well appearing, well nourished, no distress, non-toxic EYE EXAM: normal conjunctiva. OROPHARYNX: no exudate, no erythema, lips, buccal mucosa, and tongue normal and mucous membranes are moist LUNGS: Clear to auscultation. Normal chest wall mechanics HEART: no murmurs, S1 normal and S2 normal ABDOMEN: abdomen soft, TTP in RLQ, normo-active bowel sounds, no masses, no rebound or guarding. UPPER EXTREMITIES: upper extremities are grossly normal. LOWER EXTREMITIES: No pitting edema. NEURO EXAM: Normal sensorium, cranial nerves II-XII grossly intact, normal speech, no gross weakness of arms, no gross weakness of legs. MEDICAL DECISION MAKING: Patient is a 36-year-old female who presents ER for right lower quadrant abdominal pain that started yesterday. IV was established blood work was obtained. External records were reviewed. Labs showed no significant leukocytosis or anemia. BMP along with LFTs bilirubin and lipase was unremarkable. UA was contaminated. was negative. COVID-negative. CT abdomen pelvis confirms acute appendicitis. She was given IV fluids. Declined pain medications. She was given 2 g of cefoxitin. Discussed with the patient at bedside in regards to appendicitis and evaluation by general surgery for OR and she was agreeable. Discussed with Laine from general surgery who evaluate the patient and took patient to the OR with Dr. Wong. Triage Nursing notes reviewed. Limited review of prior medical records performed Vital Signs: reviewed and remarkable for tachy Differential diagnosis: Differential diagnoses includes but is not limited to gastritis, peptic ulcer disease, GERD, gallbladder disease, pancreatitis, small bowel obstruction, appendicitis, diverticulitis, hernia, urinary tract infection, torsion, /ectopic (if female), perforation, trauma, infectious. ER treatment provided: See below Diagnostics interpreted by me include EKG and cardiac monitoring as listed below: -Cardiac Monitoring: An order was placed for continuous cardiac monitoring. The monitor shows a rate of 101 with sinus rhythm. -ECG: none -Laboratory studies:Interpreted by me as stated above in MDM and shown below. Imaging studies: Xrays: As interpreted by me:none CTs show: CT abdomen pelvis per my read shows no bowel obstruction. CT abdomen pelvis per radiology shows acute uncomplicated appendicitis. Consultation(s): Discussed with Laine from general surgery who evaluated the patient at bedside with Dr. 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, antepartum Varicella vaccination Surgical History S/P dilatation and curettage S/P wisdom tooth extraction Family History Mother Hypertension History of thyroidectomy Social History Smoking Status: Never smoker Hx Alcohol Use: No Hx Substance Use: No Preferred Language: Ukrainian Communication Ability: Effective Preschool Adviser Required: No Beliefs That Will Affect Care: None marital status: marital status details: Bharat Jhaveri (37) [phone] Current Living Situation: Family Current Living Situation Comment: lives with spouse, and son, current occupational status: employed 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 Feels Safe at Home: Yes Assistive Devices: None Allergies Allergies Allergy/AdvReac Type Severity Reaction Status Date / Time No Known Drug Allergies Allergy Unknown Verified 10/28/22 16:25 Home Meds Home Medications Medication Instructions Recorded Confirmed prenat.vits,néstor,[id number] 1 tab PO DAILY 04/18/20 10/28/22 Previous Rx's Medication Instructions Recorded levothyroxine 50 mcg tablet 50 mcg PO DAILY #90 tabs 11/04/22 Results & Data (ED) Vital Signs Vital Signs - 24 hr 11/19/22 09:48 11/19/22 09:54 11/19/22 09:54 Temperature 36.8 C Temperature Source Oral Pulse Rate 109 H Pulse Rate [Apical] Pulse Rate [Right Finger] Pulse Rhythm Pulse Rhythm [Apical] Pulse Rhythm [Right Finger] Pulse Strength [Apical] Respiratory Rate 18 16 16 Respiratory Effort / Characteristics Non-Labored Respiratory Depth Normal Respiratory Pattern Regular Blood Pressure 138/87 Blood Pressure [Left Arm] Blood Pressure [Right Arm] 115/67 Blood Pressure Mean 104 Blood Pressure Mean [Left Arm] Blood Pressure Mean [Right Arm] 83 Blood Pressure Position [Left Arm] Blood Pressure Position [Right Arm] Sitting Pulse Oximetry 97 96 96 Oxygen Delivery Method Room Air Room Air Room Air Sepsis Recent Fever Within 48 Hours No Sepsis New/Unexplained Change in Mental Status No Sepsis Action Taken by Nursing No Action Required 11/19/22 09:55 11/19/22 10:23 11/19/22 12:29 Temperature Temperature Source Pulse Rate 66 Pulse Rate [Apical] 73 67 Pulse Rate [Right Finger] Pulse Rhythm Regular Pulse Rhythm [Apical] Regular Regular Pulse Rhythm [Right Finger] Pulse Strength [Apical] Normal Normal Respiratory Rate 16 16 16 Respiratory Effort / Characteristics Non-Labored Non-Labored Respiratory Depth Normal Normal Respiratory Pattern Regular Regular Blood Pressure Blood Pressure [Left Arm] Blood Pressure [Right Arm] 115/67 117/77 Blood Pressure Mean Blood Pressure Mean [Left Arm] Blood Pressure Mean [Right Arm] 83 90 Blood Pressure Position [Left Arm] Blood Pressure Position [Right Arm] Sitting Pulse Oximetry 98 100 98 Oxygen Delivery Method Room Air Room Air Room Air Sepsis Recent Fever Within 48 Hours Sepsis New/Unexplained Change in Mental Status Sepsis Action Taken by Nursing 11/19/22 13:10 11/19/22 13:31 Temperature 36.9 C Temperature Source Oral Pulse Rate 67 Pulse Rate [Apical] Pulse Rate [Right Finger] 82 Pulse Rhythm Pulse Rhythm [Apical] Pulse Rhythm [Right Finger] Regular Pulse Strength [Apical] Respiratory Rate 16 20 Respiratory Effort / Characteristics Non-Labored Spontaneous Respiratory Depth Normal Respiratory Pattern Regular Blood Pressure 115/77 Blood Pressure [Left Arm] 117/59 L Blood Pressure [Right Arm] Blood Pressure Mean Blood Pressure Mean [Left Arm] 78 Blood Pressure Mean [Right Arm] Blood Pressure Position [Left Arm] Semi-fowlers Blood Pressure Position [Right Arm] Pulse Oximetry 96 99 Oxygen Delivery Method Room Air Room Air Sepsis Recent Fever Within 48 Hours Sepsis New/Unexplained Change in Mental Status Sepsis Action Taken by Nursing Laboratory Data 11/19/22 10:15 11/19/22 10:15 Lab Results 11/19/22 11/19/22 11/19/22 Range/Units 10:15 10:15 10:15 WBC 10.34 (4.8-10.8) K/ul RBC 4.69 (4.20-5.40) M/uL Hgb 14.3 (12.0-16.0) g/dl Hct 42.8 (37.0-47.0) % MCV 91.3 (80.0-100.0) fL MCH 30.5 (25.0-34.0) pg MCHC 33.4 (32.0-36.0) g/dL RDW Std Deviation 42.5 (36.4-46.3) fL RDW Coeff of [place] 12.7 (11.5-14.5) % Plt Count 224 (130-400) K/uL MPV 10.5 (9.4-12.4) fL Immature Gran % (Auto) 0.3 % Neut % (Auto) 80.6 % Lymph % (Auto) 12.4 % [place] % (Auto) 5.7 % Eos % (Auto) 0.6 % Baso % (Auto) 0.4 % Neut # (Auto) 8.34 H (1.40-6.50) K/uL Lymph # (Auto) 1.28 (1.2-3.4) K/uL [place] # (Auto) 0.59 (0.11-0.59) K/uL Eos # (Auto) 0.06 (0-0.50) K/uL Baso # (Auto) 0.04 (0-0.2) K/uL Immature Gran # (Auto) 0.03 (0.01-0.20) K/uL Sodium 139 (136-145) mmol/L Potassium 3.9 (3.5-5.1) mmol/L Chloride 104 (98-107) mmol/L Carbon Dioxide 28 (21-32) mmol/L Anion Gap 7 (3-11) BUN 12 (6-23) mg/dl Creatinine 0.55 L (0.6-1.2) mg/dl Est Cr Clr Drug Dosing 127.2 ml/min Est GFR ( Amer) 139.9 ml/min Est GFR (Non-Af Amer) 120.7 ml/min BUN/Creatinine Ratio 21.8 H (10-20) Glucose 82 (70-99(Fasting)) mg/dl Calcium 9.5 (8.5-10.1) mg/dl Total Bilirubin 0.8 (0.2-1.0) mg/dl AST 16 (13-39) U/L ALT 13 (7-52) U/L Alkaline Phosphatase 88 (34-104) U/L Total Protein 8.5 H (6.0-8.3) gm/dl Albumin 4.6 (3.4-5.0) gm/dl Globulin 3.9 (2.5-4.0) gm/dl Albumin/Globulin Ratio 1.2 (0.9-2) Lipase 10 L (11-82) U/L Urine Color Yellow Urine Appearance Clear (Clear) Urine pH 5.5 (4.5-7.5) Ur Specific [place] 1.022 (1.000-1.030) Urine Protein Negative (Negative) Urine Glucose (UA) Negative (Negative) Urine Ketones Negative (Negative) Urine Blood Trace H (Negative) Urine Nitrite Negative (Negative) Urine Bilirubin Negative (Negative) Urine Urobilinogen Negative (Negative) Ur Leukocyte Esterase 1+ H (Negative) Urine WBC (Auto) 5-10 H (0-5) /hpf Urine RBC (Auto) 0-4 (0-4) /hpf U Hyaline Cast (Auto) 1-5 (0-5) /lpf U Epithel Cells (Auto) >30 H (0-5) /lpf Urine Bacteria (Auto) Negative (Negative) POC Ur Test (NEG) SARS-CoV-2, RNA, NAAT (NEGATIVE) 11/19/22 11/19/22 Range/Units 10:15 11:37 WBC (4.8-10.8) K/ul RBC (4.20-5.40) M/uL Hgb (12.0-16.0) g/dl Hct (37.0-47.0) % MCV (80.0-100.0) fL MCH (25.0-34.0) pg MCHC (32.0-36.0) g/dL RDW Std Deviation (36.4-46.3) fL RDW Coeff of [place] (11.5-14.5) % Plt Count (130-400) K/uL MPV (9.4-12.4) fL Immature Gran % (Auto) % Neut % (Auto) % Lymph % (Auto) % [place] % (Auto) % Eos % (Auto) % Baso % (Auto) % Neut # (Auto) (1.40-6.50) K/uL Lymph # (Auto) (1.2-3.4) K/uL [place] # (Auto) (0.11-0.59) K/uL Eos # (Auto) (0-0.50) K/uL Baso # (Auto) (0-0.2) K/uL Immature Gran # (Auto) (0.01-0.20) K/uL Sodium (136-145) mmol/L Potassium (3.5-5.1) mmol/L Chloride (98-107) mmol/L Carbon Dioxide (21-32) mmol/L Anion Gap (3-11) BUN (6-23) mg/dl Creatinine (0.6-1.2) mg/dl Est Cr Clr Drug Dosing ml/min Est GFR ( Amer) ml/min Est GFR (Non-Af Amer) ml/min BUN/Creatinine Ratio (10-20) Glucose (70-99(Fasting)) mg/dl Calcium (8.5-10.1) mg/dl Total Bilirubin (0.2-1.0) mg/dl AST (13-39) U/L ALT (7-52) U/L Alkaline Phosphatase (34-104) U/L Total Protein (6.0-8.3) gm/dl Albumin (3.4-5.0) gm/dl Globulin (2.5-4.0) gm/dl Albumin/Globulin Ratio (0.9-2) Lipase (11-82) U/L Urine Color Urine Appearance (Clear) Urine pH (4.5-7.5) Ur Specific [place] (1.000-1.030) Urine Protein (Negative) Urine Glucose (UA) (Negative) Urine Ketones (Negative) Urine Blood (Negative) Urine Nitrite (Negative) Urine Bilirubin (Negative) Urine Urobilinogen (Negative) Ur Leukocyte Esterase (Negative) Urine WBC (Auto) (0-5) /hpf Urine RBC (Auto) (0-4) /hpf U Hyaline Cast (Auto) (0-5) /lpf U Epithel Cells (Auto) (0-5) /lpf Urine Bacteria (Auto) (Negative) POC Ur Test NEG (NEG) SARS-CoV-2, RNA, NAAT NEGATIVE (NEGATIVE) Administered Medications Discontinued Medications Sodium Chloride (Nss 1000ml) 1,000 mls @ 999 mls/hr IV .Q1H1M ONE Stop: 11/19/22 11:02 Last Infusion: 11/19/22 11:47 Dose: 0 mls/hr Documented By: Admin: 11/19/22 10:36 Dose: 999 mls/hr Documented By: ALYSSA(2) Cefoxitin Sodium (Mefoxin) 2,000 mg in 60 mls @ 100 mls/hr IV NOW STA Stop: 11/19/22 11:45 Last Admin: 11/19/22 11:33 Dose: 100 mls/hr Documented By: ALYSSA(2) Ioversol (Optiray 350 100ml) 94 ml IV ONCE ONE Stop: 11/19/22 10:32 Last Admin: 11/19/22 10:31 Dose: 94 ml Documented By: BARBRA Imaging Data Radiologist's Impression: Abdomen/Pelvis CT 11/19/22 10:[address] WITH IV CONTRAST CT DOSE: 289.15 mGy.cm HISTORY: Right lower quadrant abdominal pain. TECHNIQUE: Multiaxial CT images of the abdomen and pelvis were performed following the use of intravenous contrast. A dose lowering technique was utilized adhering to the principles of ALARA. COMPARISON STUDY: None. FINDINGS: The lung bases are clear. No pneumoperitoneum. No pneumatosis. No fractures identified. Small diverticulum at the gastric fundus. A 7 mm hypodense lesion within the left hepatic dome. This is technically too small to characterize but statistically represents a cyst. Spleen is at the upper limits of normal for size. The adrenal glands, pancreas, gallbladder are unremarkable. The kidneys enhance normally. No hydronephrosis. The bladder is not well- distended but appears unremarkable. The uterus and ovaries are within normal limits. Trace pelvic free fluid. No retroperitoneal or pelvic lymphadenopathy. Normal caliber abdominal aorta. The main portal vein is patent. Small nodular foci within the subcutaneous fat of the gluteal regions may represent injection granulomas. Thickening of the cecum with small amount of fluid within the right lower quadrant. The appendix is thick-walled, distended, and fluid-filled. There is associated periappendiceal fat stranding. Findings are consistent with acute appendicitis. No extraluminal gas or abscess at this time to suggest a definite perforation. The appendix measures up to 11 mm in diameter. Mild ileocolic lym phadenopathy IMPRESSION: 1. Acute appendicitis. No extraluminal gas or abscess at this time to suggest a perforation. 2. Thickening of the cecum and mild ileocolic lymphadenopathy which is likely reactive. ACT 112: Negative or not required by law. Electronically signed by: Thor Foster M.D. 11/19/2022 10:43 AM Discharge Plan Visit Data Chief Complaint: Abdominal Pain Stated Complaint: ABDOMINAL PAIN ED Provider: Gilberto Madrid Discharge Problem: Acute appendicitis, Abdominal pain Patient Disposition: Admitted As Inpatient Discharge Instructions Interventions: ED Discharge Assessment Last Done: 11/19/22 13:10 Forms Stand Alone Forms: [employer] Prescriptions Prescriptions: No Action levothyroxine 50 mcg tablet 50 mcg PO DAILY Qty: 90 0RF prenat.vits,néstor,[id number] Tablet 1 tab PO DAILY Referrals Referrals: Mila Oglesby [Primary Care Provider] -
[2022-11-19] MEDS ORDERED: OPTIRAY 350 100ml IV ONE (10:31)
[2022-11-19 10:33] LABS: Basophils # (auto) 0.04 K/uL (0-0.2); Basophils % (auto) 0.4 %; Eosinophils # (auto) 0.06 K/uL (0-0.50); Eosinophils % (auto) 0.6 %; Hematocrit (blood only) 42.8 % (37.0-47.0); Hemoglobin 14.3 g/dl (12.0-16.0); Immature Granulocytes # (auto) 0.03 K/uL (0.01-0.20); Immature Granulocytes % (auto) 0.3 %; Lymphocytes # (auto) 1.28 K/uL (1.2-3.4); Lymphocytes % (auto) 12.4 %; Mean Corpuscular Hemoglobin 30.5 pg (25.0-34.0); Mean Corpuscular Hgb Conc 33.4 g/dL (32.0-36.0); Mean Corpuscular Volume 91.3 fL (80.0-100.0); Mean Platelet Volume 10.5 fL (9.4-12.4); Monocytes # (auto) 0.59 K/uL (0.11-0.59); Monocytes % (auto) 5.7 %; Neutrophils # (auto) 8.34 K/uL (1.40-6.50); Neutrophils % (auto) 80.6 %; Platelet Count 224 K/uL (130-400); RDW Coefficient of Variation 12.7 % (11.5-14.5); RDW Standard Deviation 42.5 fL (36.4-46.3); Red Blood Count 4.69 M/uL (4.20-5.40); White Blood Count 10.34 K/ul (4.8-10.8)
--- NOTE | 2022-11-19 10:44 | CT Scan Report ---
ABDOMEN AND PELVIS CT WITH IV CONTRAST CT DOSE: 289.15 mGy.cm HISTORY: Right lower quadrant abdominal pain. TECHNIQUE: Multiaxial CT images of the abdomen and pelvis were performed following the use of intrave nous contrast. A dose lowering technique was utilized adhering to the principles of ALARA. COMPARISON STUDY: None. FINDINGS: The lung bases are clear. No pneumoperitoneum. No pneumatosis. No fractures identified. Sma ll diverticulum at the gastric fundus. A 7 mm hypodense lesion within the left hepatic dome. This is technically too small to characterize but statistically represents a cyst. Spleen is at the upper cole its of normal for size. The adrenal glands, pancreas, gallbladder are unremarkable. The kidneys enhan ce normally. No hydronephrosis. The bladder is not well-distended but appears unremarkable. The uteru s and ovaries are within normal limits. Trace pelvic free fluid. No retroperitoneal or pelvic lymphad enopathy. Normal caliber abdominal aorta. The main portal vein is patent. Small nodular foci within t he subcutaneous fat of the gluteal regions may represent injection granulomas. Thickening of the cecu m with small amount of fluid within the right lower quadrant. The appendix is thick-walled, distended , and fluid-filled. There is associated periappendiceal fat stranding. Findings are consistent with a cute appendicitis. No extraluminal gas or abscess at this time to suggest a definite perforation. The appendix measures up to 11 mm in diameter. Mild ileocolic lymphadenopathy IMPRESSION: 1. Acute appendicitis. No extraluminal gas or abscess at this time to suggest a perforation. 2. Thickening of the cecum and mild ileocolic lymphadenopathy which is likely reactive. ACT 112: Negative or not required by law. Electronically signed by: Thor Foster M.D. 11/19/2022 10:43 AM
[2022-11-19 10:54] LABS: Appearance Urine Clear (Clear); Bacteria Urine Automated Negative (Negative); Bilirubin Urine Negative (Negative); Blood Urine Trace (Negative); Color Urine Yellow; Epithelial Cell Urine Auto >30 /lpf (0-5); Glucose Urine UA Negative (Negative); Ketones Urine Negative (Negative); Leukocyte Esterase Urine 1+ (Negative); Nitrite Urine Negative (Negative); Protein Urine Negative (Negative); RBC Urine Automated 0-4 /hpf (0-4); Specific Gravity Urine 1.022 (1.000-1.030); Urobilinogen Urine Negative (Negative); pH Urine 5.5 (4.5-7.5)
[2022-11-19] MEDS ORDERED: cefOXitin 2,000 MG/60 ML BAG IV STA (11:10)
[2022-11-19 11:32] LABS: Albumin Globulin Ratio 1.2 (0.9-2); Albumin Level 4.6 gm/dl (3.4-5.0); BUN Creatinine Ratio 21.8 (10-20); Bilirubin,Total 0.8 mg/dl (0.2-1.0); Calcium 9.5 mg/dl (8.5-10.1); Creatinine Clr Calc Pharmacy 127.2 ml/min; Est GFR (African American) 139.9 ml/min; Est GFR (Non-African American) 120.7 ml/min; Globulin 3.9 gm/dl (2.5-4.0); Potassium 3.9 mmol/L (3.5-5.1); Total Protein 8.5 gm/dl (6.0-8.3)
--- NOTE | 2022-11-19 12:41 | Surgery Consultation ---
Date of Consultation November 19, 2022 Assessment & Plan (1) Acute appendicitis: pt is a 36 [id number] female who presents to ER with one day history RLQ pain, CT scan diagnosis- acute appendicitis, IMP: acute appendicitis, plan, I recommend to do laparoscopic appendectomy, possible open, D/W benefits, risks and alternatives of the surgery, the risk s- infection, bleeding, abscess, injury other organs, incisional hernia, pt and her understood, they agreed with surgery, pt signed informed consent, I answered all questions, pre- op iv antibiotic, History of Present Illness Reason for Consultation: appendicitis Requesting Physician: Gilberto Madrid MD History of Present Illness CHIEF COMPLAINT: abdominal pain HPI: Patient is a 36-year-old female who delivered in early September who presents to the ER for right lower quadrant abdominal pain. She delivered vaginally. No previous abdominal surgeries. Denies any headache or change in vision. Pain started last night around 7 PM. About 6 out of 10. Improves with rest but significantly worse with movement as well as bending and movement of the right lower extremity. No dysuria urgency or frequency. Has not had a menstrual period since she delivered. I ( Jasper Wong MD ) got a call for consult acute appendicitis, I reviewed pt's H/P, labs and CT scan with pt, pt is still have RLQ pain, PAST MEDICAL HISTORY:See Below PAST SURGICAL HISTORY:See Below FAMILY HISTORY:See Below SOCIAL HISTORY:See Below HOME MEDICATIONS:See Below ALLERGIES:See Below Allergies Allergy/AdvReac Type Severity Reaction Status Date / Time No Known Drug Allergies Allergy Unknown Verified 10/28/22 16:25 Home Medications Medication Instructions Recorded Confirmed Type prenat.vits,néstor,[id number]-[id number] 1 tab PO DAILY 04/18/20 10/28/22 History levothyroxine 50 mcg tablet 50 mcg PO DAILY #90 tabs 11/04/22 Rx Patient History Medical History (Updated 11/19/22 @ 12:43 by Jasper Wong MD) Gestational diabetes mellitus (GDM) affecting , antepartum Granulation tissue at obstetrical laceration site 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, antepartum Varicella vaccination Surgical History S/P dilatation and curettage S/P wisdom tooth extraction Family History Mother Hypertension History of thyroidectomy Social History Smoking Status: Never smoker Hx Alcohol Use: No Hx Substance Use: No Preferred Language: Chinese Communication Ability: Effective Filler Spreader Required: No Beliefs That Will Affect Care: None marital status: marital status details: Bharat Jhaveri (37) [phone] Current Living Situation: Family Current Living Situation Comment: lives with spouse, and son, current occupational status: employed 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 Feels Safe at Home: Yes Assistive Devices: None Review of Systems Constitutional: as per Subjective / HPI Eyes: as per Subjective / HPI Respiratory: as per Subjective / HPI Cardiovascular: as per Subjective / HPI Gastrointestinal: as per Subjective / HPI Genitourinary: as per Subjective / HPI Musculoskeletal: as per Subjective / HPI Neurologic: as per Subjective / HPI Psychiatric: as per Subjective / HPI Endocrine: subclinical hypothyroidism Hematologic / Lymphatic: as per Subjective / HPI Physical Exam Constitutional: WD/WN, vitals as above Eyes: PERRL, conjunctivae normal, anicteric sclerae Neck: trachea midline, no thyromegaly Respiratory: normal respiratory effort, lungs clear to auscultation Cardiovascular: RRR, no murmur, no edema Gastrointestinal (Abdomen): soft, tenderness at RLQ, no rebound pain, no distend, BS +, Musculoskeletal: no cyanosis or clubbing, extremities motor strength 5/5 Neurologic: patellar DTR's 2+ bilat, sensation intact Psychiatric: A+Ox3, euthymic affect Results & Data ([facility]) Vital Signs (Past 12 Hours) Vital Signs Temp Pulse Pulse Resp BP BP Pulse Ox 11/19/22 12:29 67 16 117/77 98 11/19/22 10:23 73 16 115/67 100 11/19/22 09:55 66 16 98 11/19/22 09:54 16 96 11/19/22 09:54 16 115/67 96 11/19/22 09:48 36.8 C 109 H 18 138/87 97 O2 Del Method 11/19/22 12:29 Room Air 11/19/22 10:23 Room Air 11/19/22 09:55 Room Air 11/19/22 09:54 Room Air 11/19/22 09:54 Room Air 11/19/22 09:48 Room Air Laboratory Results Abnormal lab results 11/19/22 11/19/22 11/19/22 Range/Units 10:15 10:15 10:15 Neut # (Auto) 8.34 H (1.40-6.50) K/uL Creatinine 0.55 L (0.6-1.2) mg/dl BUN/Creatinine Ratio 21.8 H (10-20) Total Protein 8.5 H (6.0-8.3) gm/dl Lipase 10 L (11-82) U/L Urine Blood Trace H (Negative) Ur Leukocyte Esterase 1+ H (Negative) Urine WBC (Auto) 5-10 H (0-5) /hpf U Epithel Cells (Auto) >30 H (0-5) /lpf Diagnostic Findings ABDOMEN AND PELVIS CT WITH IV CONTRAST CT DOSE: 289.15 mGy.cm HISTORY: Right lower quadrant abdominal pain. TECHNIQUE: Multiaxial CT images of the abdomen and pelvis were performed following the use of intravenous contrast. A dose lowering technique was utilized adhering to the principles of ALARA. COMPARISON STUDY: None. FINDINGS: The lung bases are clear. No pneumoperitoneum. No pneumatosis. No fractures identified. Small diverticulum at the gastric fundus. A 7 mm hypodense lesion within the left hepatic dome. This is technically too small to characterize but statistically represents a cyst. Spleen is at the upper limits of normal for size. The adrenal glands, pancreas, gallbladder are unremarkable. The kidneys enhance normally. No hydronephrosis. The bladder is not well- distended but appears unremarkable. The uterus and ovaries are within normal limits. Trace pelvic free fluid. No retroperitoneal or pelvic lymphadenopathy. Normal caliber abdominal aorta. The main portal vein is patent. Small nodular foci within the subcutaneous fat of the gluteal regions may represent injection granulomas. Thickening of the cecum with small amount of fluid within the right lower quadrant. The appendix is thick-walled, distended, and fluid-filled. There is associated periappendiceal fat stranding. Findings are consistent with acute appendicitis. No extraluminal gas or abscess at this time to suggest a definite perforation. The appendix measures up to 11 mm in diameter. Mild ileocolic lymphadenopathy IMPRESSION: 1. Acute appendicitis. No extraluminal gas or abscess at this time to suggest a perforation. 2. Thickening of the cecum and mild ileocolic lymphadenopathy which is likely reactive. ACT 112: Negative or not required by law.
--- NOTE | 2022-11-19 12:47 | History & Physical Bridge Note ---
Date of Service November 19, 2022 History & Physical Bridge Note I have examined the patient, reviewed the History & Physical and in the interval since the performance of the History & Physical I have noted the following changes of clinical significance: no changes noted
[2022-11-19] MEDS ORDERED: fentaNYL citrate 100 MCG/2 ML VIAL ONE ×2 (13:01→14:23)
[2022-11-19] MEDS ORDERED: MIDAZOLAM HCL 1 MG/ML 2ML VIAL ONE (13:01)
--- NOTE | 2022-11-19 13:20 | Anesthesiology Consultation ---
Date of Service November 19, 2022 Assessment & Plan Chart Review Chart Review: Acceptable Risk for Surgery and Patient NOT seen in Pre Admission Testing Consults Requested none ASA [id number] Proposed Anesthesia Anesthesia Type: General History Surgery Operation Date: 11/19/22 13:20 Proposed Procedures p Laparoscopic Appendectomy - Jasper Wong MD Height/Weight Height: 5 ft 5 in Weight: 57.1 kg Allergies Allergy/AdvReac Type Severity Reaction Status Date / Time No Known Drug Allergies Allergy Unknown Verified 10/28/22 16:25 Medications Home Medications Medication Instructions Recorded Confirmed Last Taken prenat.vits,néstor,nej-chde-uazgc 1 tab PO DAILY 04/18/20 10/28/22 11/24/20 levothyroxine 50 mcg tablet 50 mcg PO DAILY #90 tabs 11/04/22 Unknown NPO Date Last Intake of Fluids: 11/18/22 Time Last Intake of Fluids: 20:00 Date Last Intake of Solids: 11/11/22 Time Last Intake of Solids: 20:00 Past Medical History Medical History Gestational diabetes mellitus (GDM) affecting , antepartum Granulation tissue at obstetrical laceration site 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, antepartum Varicella vaccination Exercise / Class Metabolic Activity II 4-5 Yardwork/Stairs/Walk up hill Past Family History Family History Mother Hypertension History of thyroidectomy Past Surgical History Surgical History S/P dilatation and curettage S/P wisdom tooth extraction Past Anesthesia History No Hx of Anesthesia Complications and No Family Hx of Anesthesia Complications History of PONV No Hx of PONV and No Hx of Motion Sickness Social History Smoking Status: Never smoker Hx Alcohol Use: No Hx Substance Use: No substance use type: does not use Physical Exam Vital Signs Last Vital Signs Temp 36.8 C 11/19/22 09:48 Pulse 67 11/19/22 12:29 Resp 16 11/19/22 12:29 BP 117/77 11/19/22 12:29 Pulse Ox 98 11/19/22 12:29 O2 Del Method 11/19/22 12:29 Testing Laboratory Results 11/19/22 10:15 02/10/23 10:15 Urine Color Yellow 11/19/22 10:15 Urine Appearance Clear (Clear) 11/19/22 10:15 Urine pH 5.5 (4.5-7.5) 11/19/22 10:15 Ur Specific Buckner 1.022 (1.000-1.030) 11/19/22 10:15 Urine Protein Negative (Negative) 11/19/22 10:15 Urine Glucose (UA) Negative (Negative) 11/19/22 10:15 Urine Ketones Negative (Negative) 11/19/22 10:15 Urine Nitrite Negative (Negative) 11/19/22 10:15 Ur Leukocyte Esterase 1+ (Negative) H 11/19/22 10:15 Urine WBC (Auto) 5-10 /hpf (0-5) H 11/19/22 10:15 Urine RBC (Auto) 0-4 /hpf (0-4) 11/19/22 10:15 U Hyaline Cast (Auto) 1-5 /lpf (0-5) 11/19/22 10:15 U Epithel Cells (Auto) >30 /lpf (0-5) H 11/19/22 10:15 Urine Bacteria (Auto) Negative (Negative) 11/19/22 10:15 11/19/22 10:15 POC Ur Test NEG
[2022-11-19] MEDS ORDERED: BACITRACIN OINT 15 GM TUBE ONE (13:25)
[2022-11-19] MEDS ORDERED: BUPIVACAINE 0.5 % 5 MG/1 ML MPF 30ML VIAL ONE (13:26)
[2022-11-19] MEDS ORDERED: ePHEDrine sulfate 50 MG/ML AMP IV PRN (14:04)
[2022-11-19] MEDS ORDERED: fentaNYL citrate 100 MCG/2 ML VIAL IV PRN (14:04)
[2022-11-19] MEDS ORDERED: ATROPINE SULFATE 0.1 MG/ML 10ML SYR IV PRN (14:04)
[2022-11-19] MEDS ORDERED: FLUMAZENIL 0.1 MG/1 ML 10 ML VIAL IV PRN (14:04)
[2022-11-19] MEDS ORDERED: NALOXONE HCL 0.4 MG/1 ML VIAL/CARP IV PRN (14:04)
[2022-11-19] MEDS ORDERED: PROMETHAZINE HCL 12.5 MG in SODIUM CHLORIDE 0.9% 50 ML IV PRN (14:04)
[2022-11-19] MEDS ORDERED: ONDANSETRON INJ 2 MG/ML 2 ML VIAL IV PRN ×2 (14:04→16:53)
[2022-11-19] MEDS ORDERED: ONDANSETRON INJ 2 MG/ML 2 ML VIAL ONE (14:21)
[2022-11-19] MEDS ORDERED: DEXAMETHASONE SOD INJ 4 MG/ML VIAL ONE (14:21)
[2022-11-19] MEDS ORDERED: PROPOFOL IV EMULSION 10 MG/ML 20 ML VIAL IV ONE (14:21)
[2022-11-19] MEDS ORDERED: LIDOCAINE 2% MPF LOCAL 5 ML VIAL INFIL ONE (14:21)
[2022-11-19] MEDS ORDERED: ROCURONIUM BROMIDE 10 MG/ML 5 ML VIAL IV ONE (14:27)
[2022-11-19] MEDS ORDERED: SUCCINYLCHOLINE CHLORIDE 20 MG/ML 10 ML VIAL IV ONE (14:27)
[2022-11-19] MEDS ORDERED: GLYCOPYRROLATE 0.2 MG/ML VIAL ONE (14:27)
[2022-11-19] MEDS ORDERED: NEOSTIGMINE METHYLSULFATE 1 MG/ML 10ML VIAL ONE (14:27)
[2022-11-19] MEDS ORDERED: KETOROLAC 30 MG/ML VIAL ONE (14:42)
--- NOTE | 2022-11-19 14:47 | Post Operative Brief Note ---
Immediate Post Op Note v1 Date of Surgery November 19, 2022 Pre & Post Diagnosis Operation Date: 11/19/22 13:20 Pre-Op Diagnosis: Acute Appendicitis Post-Op Diagnosis: Acute Appendicitis I identified the patient and participated in the time-out.: Yes Procedure Operation Date: 11/19/22 13:20 Actual Procedures p Laparoscopic Appendectomy(Not Applicable) - Jasper Wong MD Surgeon Jasper Wong MD Director Of Bands LISA Iniguez Estimated Blood Loss 10 Findings Consistent with Post-Op Diagnosis Fluids 800ml Specimens appendix Anesthesia Type General Complications none Disposition Accompanied Patient To Recovery: Yes
--- NOTE | 2022-11-19 15:42 | Anesthesiology Progress Note ---
Date of Service November 19, 2022 Anesthesia Post Procedure Vital Signs Vital Signs: Temp Pulse Pulse Pulse Resp BP BP 11/19/22 15:35 78 18 11/19/22 15:25 74 21 11/19/22 15:15 70 22 11/19/22 15:08 36.4 C L 69 20 11/19/22 13:31 36.9 C 82 20 117/59 L 11/19/22 13:10 67 16 115/77 11/19/22 12:29 67 16 11/19/22 10:23 73 16 11/19/22 09:55 66 16 11/19/22 09:54 16 11/19/22 09:54 16 11/19/22 09:48 36.8 C 109 H 18 138/87 BP Pulse Ox O2 Del Method O2 Flow Rate 11/19/22 15:35 120/86 97 Room Air 11/19/22 15:25 119/76 100 Oxymask 9 11/19/22 15:15 119/78 100 Oxymask 9 11/19/22 15:08 120/84 99 Oxymask 9 11/19/22 13:31 99 Room Air 11/19/22 13:10 96 Room Air 11/19/22 12:29 117/77 98 Room Air 11/19/22 10:23 115/67 100 Room Air 11/19/22 09:55 98 Room Air 11/19/22 09:54 96 Room Air 11/19/22 09:54 115/67 96 Room Air 11/19/22 09:48 97 Room Air Pain Intensity Right Lower Abdomen: Pain Intensity: 4 Transfer of Care Handoff Completed per policy Notes Mental Status: alert / awake / arousable Patient Amnestic to Procedure: Yes Nausea / Vomiting: adequately controlled Pain: adequately controlled Airway Patency, RR, SpO2: stable & adequate BP & HR: stable & adequate Hydration State: stable & adequate Anesthetic Complications: no major complications apparent
[2022-11-19] MEDS ORDERED: oxyCODONE/ACETAMINOPHEN 5mg/325mg TAB PO PRN (16:53)
[2022-11-19] MEDS ORDERED: IBUPROFEN 600 MG TAB PO PRN (16:53)
[2022-11-19] MEDS ORDERED: HYDROmorphone INJ 0.5 MG/0.5 ML SYR IV PRN (16:53)
[2022-11-19] MEDS ORDERED: ACETAMINOPHEN 325 MG TAB PO PRN (16:53)
[2022-11-19] MEDS ORDERED: COUGH DROP (SUGAR FREE) LOZ 24 LOZ/1 BOX BUCCAL ONE (16:56)
[2022-11-19] MEDS: LACTATED RINGER'S 1,000 ML IV SCH (18:04)
--- NOTE | 2022-11-19 20:27 | Operative Report (OR) ---
PREOPERATIVE DIAGNOSIS: Acute appendicitis. POSTOPERATIVE DIAGNOSIS: Acute appendicitis. OPERATION: Laparoscopic appendectomy. SURGEON: Jasper Wong MD. HAIR PREPARER: Kenia Godwin PA-C. ANESTHESIA: General. ESTIMATED BLOOD LOSS: About 10 mL. FINDINGS: Acute appendicitis. COMPLICATIONS: None. INDICATIONS FOR THE PROCEDURE: This is a 36-year-old female, who presented to the ED with a 1-day hi story of right lower quadrant pain. The patient had a CT scan diagnosis of acute appendicitis. I re commended to do laparoscopic appendectomy, possible open. I did talk to the patient about the benefi ts, risks, alternate procedure. I indicated the risks may include, but not limited to, such as bleed ing, infection, abscess, injury to other organs, incisional hernia, bowel obstruction. The patient a nd her understand. The patient signed informed consent. I answered all questions. DETAILS OF PROCEDURE: After we identified the patient and verified the procedure, we brought the pat ient to the OR, put the patient in the supine position on the OR table. The patient received SCDs on bilateral legs to prevent DVT. Also, the patient received 2 grams cefoxitin IV for prophylactic ant ibiotic. The patient received general anesthesia without difficulty. The abdomen was prepped and dr aped in routine sterile fashion. After timeout, I injected the local anesthesia by using 1% lidocain e mixed with 0.5% Marcaine just above the umbilicus. Then I made a small incision just above umbilicu s, opened fascia, opened peritoneum. Under direct vision, put a Tasia trocar in, connected to CO2 t o create pneumoperitoneum, flow rate at 6 liters per minute, pressure not more than 14 mmHg. Once we got a nice pneumoperitoneum, we put a camera in, looked around the abdomen, showed a significant inf lammation on the appendix, confirmed diagnosis of acute appendicitis. Then, we put another two 5 mm trocars on the left lower quadrant area. Then we used the Harmonic scalpel to take down the appendice al, rechecked, no active bleeding and then we used a 45 mm Endo-ROSEMARIE stapler for transection on the ba se of the appendix, rechecked the staple line, intact and no active bleeding. Then, we removed the a ppendix through the catch bag. Then, we reinserted the Tasia trocar in, connected to CO2 to create pneumoperitoneum, again looked around the abdomen, no active bleeding, no leak from staple line and t hen we removed all trocars under direct vision. No active bleeding from the trocar site. Pneumoperi toneum was released, then I closed the umbilical incision fascial layer by using 0 Vicryl figure-of-e ight x2, closed subcutaneous layer by using 2-0 Vicryl interruptedly, closed skin by using 4-0 Vicryl continuous running, closed another two 5 mm trocar sites of skin only by using 4-0 Vicryl. Then, we put the dressing on. So, the patient tolerated the procedure well. All instrument, needle, and spo nge counts were correct x2 at the end of the case. The patient was transferred to recovery room in s table condition. The specimen was sent to pathology. After the procedure, I did talk to the patient , the patient's family member about the OR finding and the procedure we did. They understand and the first cook, Kenia was necessary for this procedure. Her role was to hold the camera, retracti on, and exposure. Job ID: [id number]
[2022-11-20 05:50] LABS: Basophils # (auto) 0.01 K/uL (0-0.2); Basophils % (auto) 0.1 %; Hematocrit (blood only) 37.6 % (37.0-47.0); Hemoglobin 12.7 g/dl (12.0-16.0); Immature Granulocytes # (auto) 0.03 K/uL (0.01-0.20); Immature Granulocytes % (auto) 0.3 %; Lymphocytes # (auto) 1.24 K/uL (1.2-3.4); Lymphocytes % (auto) 13.7 %; Mean Corpuscular Hemoglobin 30.3 pg (25.0-34.0); Mean Corpuscular Hgb Conc 33.8 g/dL (32.0-36.0); Mean Corpuscular Volume 89.7 fL (80.0-100.0); Mean Platelet Volume 10.6 fL (9.4-12.4); Monocytes # (auto) 0.35 K/uL (0.11-0.59); Monocytes % (auto) 3.9 %; Neutrophils # (auto) 7.44 K/uL (1.40-6.50); Platelet Count 217 K/uL (130-400); RDW Coefficient of Variation 12.3 % (11.5-14.5); RDW Standard Deviation 40.8 fL (36.4-46.3); Red Blood Count 4.19 M/uL (4.20-5.40); White Blood Count 9.07 K/ul (4.8-10.8)
[2022-11-20] MEDS: LACTATED RINGER'S 1,000 ML IV SCH (05:53)
[2022-11-20 06:07] LABS: Albumin Globulin Ratio 1.1 (0.9-2); Albumin Level 3.6 gm/dl (3.4-5.0); BUN Creatinine Ratio 19.2 (10-20); Bilirubin,Total 0.7 mg/dl (0.2-1.0); Calcium 9.1 mg/dl (8.5-10.1); Creatinine Clr Calc Pharmacy 134.6 ml/min; Est GFR (African American) 142.5 ml/min; Est GFR (Non-African American) 122.9 ml/min; Globulin 3.3 gm/dl (2.5-4.0); Potassium 3.9 mmol/L (3.5-5.1); Total Protein 6.9 gm/dl (6.0-8.3)
[2022-11-20] MEDS ORDERED: PRENATAL VITAMIN 1 TAB PO SCH (09:00)
[2022-11-20] MEDS ORDERED: LEVOTHYROXINE SODIUM 50 MCG TABLET PO SCH (09:00)
--- NOTE | 2022-11-20 11:15 | Surgery Progress Note ---
Date of Service November 20, 2022 Assessment & Plan (1) Acute appendicitis: Plan: pt is a 36 [id number] female who presents to ER with one day history RLQ pain, CT scan diagnosis- acute appendicitis, IMP: acute appendicitis, plan, I recommend to do laparoscopic appendectomy, possible open, D/W benefits, risks and alternatives of the surgery, the risk s- infection, bleeding, abscess, injury other organs, incisional hernia, pt and her understood, they agre ed with surgery, pt signed informed consent, I answered all questions, pre-op iv antibiotic, 11/20/2022 11:13 AM F/U S/P lap appy, POD 1 doing fine, pt wants to go home, the post op care instruction was given, F/U 2 weeks, Admission and Anticipated Discharge Date Admission Date: November 19, 2022 Subjective F/U S/P lap appy, POD 1 pt is doing fine, no significant abdominal pain, no fever, tolerated diet, Review of Systems Constitutional: as per Subjective / HPI Eyes: as per Subjective / HPI Respiratory: as per Subjective / HPI Cardiovascular: as per Subjective / HPI Gastrointestinal: as per Subjective / HPI Genitourinary: as per Subjective / HPI Musculoskeletal: as per Subjective / HPI Neurologic: as per Subjective / HPI Psychiatric: as per Subjective / HPI Endocrine: subclinical hypothyroidism Hematologic / Lymphatic: as per Subjective / HPI Physical Exam Constitutional: WD/WN, vitals as above Eyes: PERRL, conjunctivae normal, anicteric sclerae Neck: trachea midline, no thyromegaly Respiratory: normal respiratory effort, lungs clear to auscultation Cardiovascular: RRR, no murmur, no edema Gastrointestinal (Abdomen): soft, mild tenderness at incision sites, no rebound pain, no distend, BS +, Musculoskeletal: no cyanosis or clubbing, extremities motor strength 5/5 Neurologic: patellar DTR's 2+ bilat, sensation intact Psychiatric: A+Ox3, euthymic affect Results & Data ([facility]) Vital Signs (Past 12 Hours) Vital Signs Temp Pulse Resp BP Pulse Ox O2 Del Method 11/20/22 07:52 36.5 C 77 18 111/74 97 Room Air 11/20/22 03:13 36.4 C L 84 16 95/57 L 98 Room Air Laboratory Results Abnormal lab results 0211/20/22 11/20/22 Range/Units 10:15 05:33 05:33 RBC 4.19 L (4.20-5.40) M/uL Neut # (Auto) 7.44 H (1.40-6.50) K/uL Creatinine 0.55 L 0.52 L (0.6-1.2) mg/dl BUN/Creatinine Ratio 21.8 H (10-20) Glucose 113 H (70-99(Fasting)) mg/dl Total Protein 8.5 H (6.0-8.3) gm/dl Lipase 10 L (11-82) U/L
[2022-11-20 11:59] LABS: Thyroid Stimulating Hormone 0.191 uIu/ml (0.300-4.500)
[2022-11-20 12:34] LABS: T4 Free Thyroxine 0.82 ng/dl (0.61-1.60)
--- NOTE | 2022-11-21 00:41 | Discharge Summary (DS) ---
DATE OF ADMISSION: 11/19/2022. DATE OF DISCHARGE: 11/20/2022. ADMISSION DIAGNOSIS: Acute appendicitis. DISCHARGE DIAGNOSIS: Acute appendicitis. OPERATION: Laparoscopic appendectomy. SURGEON: Jasper oWng MD. DETAILS OF DISCHARGE SUMMARY: This is a 36-year-old female who presented to the ED with a couple-day history of abdominal pain, and the patient had a CT scan diagnosis of acute appendicitis. We took the patient to the OR. We did l aparoscopic appendectomy on 11/19/2022. The patient tolerated the procedure well. After the procedu re, the patient was transferred to regular floor. The patient is doing fine and tolerating the diet. No significant abdominal pain. PHYSICAL EXAMINATION: VITAL SIGNS: Temperature is 36.5, respiratory rate 18, heart rate 77, blood pressure is 111/74, O2 s aturation 97% on room air. GENERAL: The patient is alert, awake, oriented x3. HEENT: Within normal limitation. NEUROLOGIC: Intact. NECK: No JVD. CHEST: Bilateral lung sounds clear. HEART: Normal S1 and S2. No murmur. ABDOMEN: Soft, mild tenderness on the incision site. No rebound pain. All incisions intact. No re dness. Bowel sounds positive. EXTREMITIES: No edema. All the labs are normal and the patient will go home today. I gave the patient postoperative care in struction, the patient understands. I will follow up with the patient in 2 weeks. Job ID: [id number]
== END 2022-11-20 12:42 | disposition home or self-care (01) ==
LOC: ED 09:44 → OR 13:10 → 3E 13:10